=== PATIENT | female | born 1940 | race Caucasian/White ===

== ENCOUNTER → 2017-02-04 | Outpatient (CLI) | payer MEDICARE, OTHER ==
[~2017-02-04] MED LIST: 3N1 COMMODE MC; ASPI-781 PO; CPM MC; DULO20CA17 PO; FLOV220 INHALATION; OMEP20CA16 PO; OXYC-481 PO; SIMV-39 PO; WALK1EAC23 MC
--- NOTE | 2017-02-04 14:27 | RADRPT ---
PROCEDURE: X-RAY LEFT KNEE CLINICAL INDICATION: Total knee replacement. Status post surgery. Follow-up. TECHNIQUE: Three views of the left knee are available for review. COMPARISON: 05/17/2016 FINDINGS: Patient is status post total knee replacement. The knee replacement is in good position and alignme nt without evidence of migration, loosening, infection, or fracture. No bone destructive or erosive changes are seen. No acute fracture is identified. There is a moderate effusion. The effusion cou ld reflect synovitis. IMPRESSION: 1. Appropriate postoperative appearance of left knee replacement. 2. No evidence for fracture. 3. Moderate joint effusion which could reflect synovitis. RPTAT: XX .Munir Noel MD, MD Date Time Electronically viewed and signed by .Munir Noel MD, on 02/04/2017 14:26 .T/
== END | disposition home or self-care (01) ==
LOC: HKI 13:56
PROVIDERS: ATTEND Orthopaedic Surgery
DX: Z09 Encounter for follow-up examination after completed treatment for conditions other than malignant neoplasm (principal); Z96.652 Presence of left artificial knee joint
CPT/HCPCS: 73562; G0463